=== PATIENT | male | born 1985 | race American Indian/Alaskan Native ===

== ENCOUNTER 2020-05-18 23:10 | Emergency (ER) | payer SELFPAY ==
[2020-05-19 02:09] LABS: Basophils % (Auto) 0.6 % (0.0-1.8); Eosinophils # (Auto) 0.1 K/mm3 (0.0-0.4); Eosinophils % (Auto) 1.4 % (0.0-4.3); Hematocrit 42.9 % (35.5-45.6); Hemoglobin 14.3 gm/dl (11.8-15.2); Lymphocytes # (Auto) 1.7 K/mm3 (1.2-5.4); Lymphocytes % (Auto) 27.8 % (13.4-35.0); Mean Corpuscular HGB Conc 33 % (32-34); Mean Corpuscular Volume 83 fl (84-94); Monocytes # (Auto) 0.6 K/mm3 (0.0-0.8); Monocytes % (Auto) 9.7 % (0.0-7.3); Platelet Count 331 K/mm3 (140-440); Red Blood Count 5.16 M/mm3 (3.65-5.03); Red Cell Distribution Width 15.8 % (13.2-15.2)
[2020-05-19 02:22] LABS: Blood Urea Nitrogen 8 mg/dL (9-20); Calcium 9.3 mg/dL (8.4-10.2); Hemolysis Index 24
[2020-05-19 02:29] LABS: BUN/Creatinine Ratio 13
--- NOTE | 2020-05-19 09:51 | Emergency Department Report ---
<JESSI ROSADO - Last Filed: 05/19/20 14:49> ED Psych HPI - General Chief Complaint: Psych Stated Complaint: MENTAL HEALTH CRISIS Time Seen by Provider: 05/19/20 09:02 Source: patient Mode of arrival: Ambulatory - History of Present Illness Initial Comments: 35-year-old male presents to ED for mental health evaluation. Patient reports history of depression, alcoholism, drug abuse. Patient states his last drink was last night. States he last used cocaine approximately 3 weeks ago. Patient states he is now feeling suicidal, with plan to overdose on Tylenol. Patient states he has just been depressed about a lot of things which has led him to have thoughts of suicide. Patient denies any HI or hallucinations. MD Complaint: suicidal ideation, feels depressed -: unknown Associated Psychiatric Symptoms: depression, suicidal ideation Quality: constant Improves With: none Worsens With: none Context: recent alcohol abuse, significant life stressor Associated Symptoms: denies other symptoms Treatments Prior to Arrival: none If Self Harm: has plan (Overdose on pills) - Related Data Allergies Allergy/AdvReac Type Severity Reaction Status Date / Time No Known Allergies Allergy Unverified 05/19/20 00:46 ED Review of Systems Comment: All other systems reviewed and negative Psychiatric: depression, suicidal thoughts ED Past Medical Hx - Past Medical History Previous Medical History?: Yes Hx Asthma: Yes - Surgical History Past Surgical History?: No - Social History Smoking Status: Current Every Day Smoker Substance Use Type: Marijuana ED Physical Exam - General Limitations: No Limitations General appearance: alert, in no apparent distress - Head Head exam: Present: atraumatic, normocephalic - Eye Eye exam: Present: normal appearance, EOMI - ENT ENT exam: Present: mucous membranes moist - Neck Neck exam: Present: normal inspection - Respiratory Respiratory exam: Present: normal lung sounds bilaterally. Absent: respiratory distress - Cardiovascular Cardiovascular Exam: Present: regular rate, normal rhythm - GI/Abdominal GI/Abdominal exam: Absent: distended - Extremities Exam Extremities exam: Present: normal inspection - Neurological Exam Neurological exam: Present: alert, oriented X3 - Psychiatric Psychiatric exam: Present: normal affect, normal mood - Skin Skin exam: Present: warm, dry, intact, normal color ED Medical Decision Making - Lab Data Result diagrams: 05/19/20 01:07 05/19/20 01:07 - Medical Decision Making 35-year-old male presents to the ED seeking mental health evaluation for alcohol and drug abuse and suicidal ideations. Labs are unremarkable except for EtOH level of 190. Patient is A& O x3. He is medically clear for mental health evaluation. Will dispo per psych. - Differential Diagnosis SI, drug abuse, EtOH abuse ED Disposition Clinical Impression: Alcohol intoxication, Passive suicidal ideations Disposition: DC-01 TO HOME OR SELFCARE Condition: Stable Additional Instructions: In case of an emergency, please contact the following numbers: [place] Crisis and Access Line: Number: Crisis Text Line: (Text START) Number: [id number] Suicide Prevention Line: Number: Emergency Number: 911 SUBSTANCE ABUSE PROGRAMS: [facility]: Location: [place], [place] [employer] Address: [address] [place] [address] [facility]: Address: [address] [place] [address] [facility]: Address: [address] [place] [address] [facility]: Address: [address] [place] [address] [facility] Address: [address] [place] [address]. Please contact above numbers to attempt placement into free based program. Medicaid Programs: [facility]: Address: [address] [place] [address] [facility]: Address: [address] [place] [address] [facility] Behavior[facility] Health Resources : [place]: [facility] [address] [place], [place] [address] [place]: [facility] - [address] [place] [address] Sunday thru Sunday - 8am - 5pm [place]: [facility] Address: [address] [place] [address] Sunday thru Sunday- 7am-2pm [facility] Address: [address], [place] [address] Sunday thru Sunday: 8:30AM-5PM Prescriptions: Nicotine [Habitrol] 21 mg TD DAILY #30 patch Referrals: PRIMARY CARE, [Primary Care Provider] - 3-5 Days <CRISELDA THORPE - Last Filed: 05/20/20 12:45> ED Review of Systems ROS: Stated complaint: MENTAL HEALTH CRISIS Other details as noted in HPI ED Course Vital Signs 05/19/20 05/19/20 05/19/20 00:25 07:24 08:37 Temperature 97.8 F 98.3 F 98.2 F Pulse Rate 107 H 92 H 78 Respiratory 18 16 18 Rate Blood Pressure 125/84 Blood Pressure 132/82 120/78 [Right] O2 Sat by Pulse 97 97 96 Oximetry 05/19/20 05/19/20 05/19/20 12:08 13:29 20:35 Temperature 98.2 F Pulse Rate 88 78 Respiratory 16 16 18 Rate Blood Pressure Blood Pressure 124/68 120/78 [Right] O2 Sat by Pulse 100 99 96 Oximetry 05/20/20 05/20/20 05:09 08:01 Temperature 98.5 F 98.4 F Pulse Rate 70 81 Respiratory 18 18 Rate Blood Pressure Blood Pressure 118/60 114/69 [Right] O2 Sat by Pulse 100 96 Oximetry - Reevaluation(s) Reevaluation #1: 05/20/20 12:44 Patient was seen by our mental health assessment team. Their note is as follows: Psychiatric Consult Note Patient Name: DELLA SALEH Date of : 89 Patient Status: Emergency Emergency Provider: JESSI ROSADO Date: 05/20/20 10:43 Initialization Date: 05/20/20 10:43 History of Present Illness - Reason for Consult Consult date: 05/20/20 Reason for consult: suicidal - History of Present Psychiatric Illness The patient's medical record was reviewed and the patient's progress was discussed with the nursing staff. The nurse caring for the patient today states that he has been calm and cooperative and has denies thoughts of self harm or hallucinations. eDlla Saleh is a 35y/o male patient who states he came to the ER because "I was on my way to my program and I relapsed." He then says, "I needed to be here a couple of days to get back in." He then says, "I think my two days are just about up." The patient is calm, cooperative, and polite. He makes good eye contact. He describes his mood as "good." The patient says "I only had a couple of beers but I felt guilty." He then laughs. The patient says prior to that he used to drink "a 5th of hennesy a day." The patient denies any illicit drug use. He says he smokes a "pack of cigarettes a day," in which he is asking for a patch. The patient denies any withdrawal symptoms at present. He denies SI/HI, and reports never having a suicide attempt. He also denies any past psychiatric hospitalizations or being on any psychiatric medications. He also denies hallucinations of any kind. The patient is asking about returning to his detox facility. He asks "can somebody check and see if I can go back." PAST PSYCHIATRIC HISTORY: Suicide attempts or Self-harm behavior: Denies Prior psychiatric hospitalizations: Denies Substance Abuse history: Alcohol Previous psychiatric medications tried: Denies Outpatient treatment: Detox facility PAST MEDICAL HISTORY: Family Psychiatric History: None reported or documented SOCIAL HISTORY Marital Status: Single Living Arrangements: Detox facility Employment Status: Unemployed Access to guns/weapons: Denies Education: High school grad History of Abuse: Denies Legal History: Denies REVIEW OF SYSTEMS Constitutional: Negative for weight loss ENT: Negative for stridor Respiratory: Negative for cough or hemoptysis All other systems reviewed and are negative MENTAL STATUS EXAMINATION General Appearance: Dressed appropriately Behavior: calm, cooperative, polite Mood: "good" Affect and affective range: Congruent with stated mood Thought Process: goal directed Speech: Normal tone and pace Suicidal Ideation: Denies Homicidal Ideation: Denies Hallucinations: Denies Delusions: None elicited Insight and Judgment: Normal Memory/Cognition: Normal Impulse control: Limited Attention: Normal Orientation: Alert, oriented x 3 Assessment Alcohol Use Disorder PLAN d/c 1013 Nicotine patch 21mg daily Sitter: Defer to primary Medical: Per primary Disposition: Do not recommend acute inpatient treatment. The patient may discharge once medically clear. He understands that if suicidal ideation or any fear of endangerment are to arise he should seek immediate assistance, including the crisis hotline, 911, and or ER. The lifeline representatives is to further implement the safety plan with the patient The lifeline representatives is to provide the patient with outpatient resources for psychiatric services, cognitive behavioral therapy and additional detox programs The patient is to follow up in 7 to 14 days with primary and psych upon discharge. Will sign off. Thank you for this consult ED Medical Decision Making - Lab Data Result diagrams: 05/19/20 01:07 05/19/20 01:07 Critical care attestation.: If time is entered above; I have spent that time in minutes in the direct care of this critically ill patient, excluding procedure time. ED Disposition Is pt being admited?: No Does the pt Need Aspirin: No Time of Disposition: 12:45
[2020-05-19 11:40] LABS: Bilirubin,Urine NEG (Negative); Blood,Urine SM (Negative); Color,Urine Yellow (Yellow); Mucus,Urine FEW /HPF; Protein,Urine <15 mg/dL mg/dL (Negative)
[2020-05-19 11:47] LABS: Amphetamine Screen,Urine Negative; Benzodiazepines Screen,Urine Negative; Cannabinoid Screen,Urine Negative; Cocaine Screen,Urine Negative; Methadone Screen,Urine Negative; Opiate Screen,Urine Negative
[2020-05-20 08:02] VITALS: BP 114/69
--- NOTE | 2020-05-20 10:45 | Consultation ---
History of Present Illness - Reason for Consult Consult date: 05/20/20 Reason for consult: suicidal - History of Present Psychiatric Illness The patient's medical record was reviewed and the patient's progress was discussed with the nursing staff. The nurse caring for the patient today states that he has been calm and cooperative and has denies thoughts of self harm or hallucinations. Della Mclean is a 35y/o male patient who states he came to the ER because "I was on my way to my program and I relapsed." He then says, "I needed to be here a couple of days to get back in." He then says, "I think my two days are just about up." The patient is calm, cooperative, and polite. He makes good eye contact. He describes his mood as "good." The patient says "I only had a couple of beers but I felt guilty." He then laughs. The patient says prior to that he used to drink "a 5th of hennesy a day." The patient denies any illicit drug use. He says he smokes a "pack of cigarettes a day," in which he is asking for a patch. The patient denies any withdrawal symptoms at present. He denies SI/HI, and reports never having a suicide attempt. He also denies any past psychiatric hospitalizations or being on any psychiatric medications. He also denies hallucinations of any kind. The patient is asking about returning to his detox facility. He asks "can somebody check and see if I can go back." PAST PSYCHIATRIC HISTORY: Suicide attempts or Self-harm behavior: Denies Prior psychiatric hospitalizations: Denies Substance Abuse history: Alcohol Previous psychiatric medications tried: Denies Outpatient treatment: Detox facility PAST MEDICAL HISTORY: Family Psychiatric History: None reported or documented SOCIAL HISTORY Marital Status: Single Living Arrangements: Detox facility Employment Status: Unemployed Access to guns/weapons: Denies Education: High school grad History of Abuse: Denies Legal History: Denies REVIEW OF SYSTEMS Constitutional: Negative for weight loss ENT: Negative for stridor Respiratory: Negative for cough or hemoptysis All other systems reviewed and are negative MENTAL STATUS EXAMINATION General Appearance: Dressed appropriately Behavior: calm, cooperative, polite Mood: "good" Affect and affective range: Congruent with stated mood Thought Process: goal directed Speech: Normal tone and pace Suicidal Ideation: Denies Homicidal Ideation: Denies Hallucinations: Denies Delusions: None elicited Insight and Judgment: Normal Memory/Cognition: Normal Impulse control: Limited Attention: Normal Orientation: Alert, oriented x 3 Assessment Alcohol Use Disorder PLAN d/c 1013 Nicotine patch 21mg daily Sitter: Defer to primary Medical: Per primary Disposition: Do not recommend acute inpatient treatment. The patient may discharge once medically clear. He understands that if suicidal ideation or any fear of endangerment are to arise he should seek immediate assistance, including the crisis hotline, 911, and or ER. The quality control lab tech is to further implement the safety plan with the patient The quality control lab tech is to provide the patient with outpatient resources for psychiatric services, cognitive behavioral therapy and additional detox programs The patient is to follow up in 7 to 14 days with primary and psych upon discharge. Will sign off. Thank you for this consult Medications and Allergies Allergies Allergy/AdvReac Type Severity Reaction Status Date / Time No Known Allergies Allergy Unverified 05/19/20 00:46 Mental Status Exam - Vital signs Last Vital Signs Temp 98.4 F 05/20/20 08:01 Pulse 81 05/20/20 08:01 Resp 18 05/20/20 08:01 BP 114/69 05/20/20 08:01 Pulse Ox 96 05/20/20 08:01 Results Result Diagrams: 05/19/20 01:07 05/19/20 01:07 All other labs normal.
== END 2020-05-20 13:27 | disposition home or self-care (01) ==
LOC: ED 23:10
DX: F10.129 Alcohol abuse with intoxication, unspecified (principal); R45.851 Suicidal ideations; J45.909 Unspecified asthma, uncomplicated; F17.200 Nicotine dependence, unspecified, uncomplicated; F12.10 Cannabis abuse, uncomplicated

== ENCOUNTER 2020-12-23 04:47 | Emergency (ER) | payer MEDICAID ==
[2020-12-23 05:46] LABS: Basophils % (Auto) 0.5 % (0.0-1.8); Eosinophils # (Auto) 0.1 K/mm3 (0.0-0.4); Eosinophils % (Auto) 1.2 % (0.0-4.3); Hematocrit 44.5 % (35.5-45.6); Hemoglobin 15.1 gm/dl (11.8-15.2); Lymphocytes # (Auto) 2.4 K/mm3 (1.2-5.4); Lymphocytes % (Auto) 36.2 % (13.4-35.0); Mean Corpuscular HGB Conc 34 % (32-34); Mean Corpuscular Volume 83 fl (84-94); Monocytes # (Auto) 0.7 K/mm3 (0.0-0.8); Monocytes % (Auto) 10.5 % (0.0-7.3); Platelet Count 325 K/mm3 (140-440); Red Blood Count 5.36 M/mm3 (3.65-5.03); Red Cell Distribution Width 14.7 % (13.2-15.2)
[2020-12-23 06:05] LABS: BUN/Creatinine Ratio 14; Blood Urea Nitrogen 11 mg/dL (9-20); Hemolysis Index 27
--- NOTE | 2020-12-23 08:12 | Event Note ---
ED Screening Note Date of service: 12/23/20 Time: 08:11 ED Screening Note: 35-year-old male patient with history of asthma, depression, and PTSD presents to the emergency department with complaints of suicidal ideations for 2 days. Patient states he was recently released [facility] and is currently homeless. He has struggled with suicidal thoughts in the past, as recently as 6 months ago. He has attempted suicide on previous occasions. Patient states, "I've thought about taking a bunch of pills." Last alcohol consumption was last night. Last marijuana use was approximately 1 month ago. No other illicit drug use. No homicidal ideations. No hallucinations. Tachycardic in triage. General: Awake, appropriately interactive, no acute distress. Neck: Supple. Full range of motion intact. Cardiovascular: Normal peripheral perfusion. Pulmonary: No respiratory distress. Patient is speaking normally without use of accessory muscles. Skin: No apparent rashes or lesions. Neurological: No facial asymmetry. Speech is clear. Follows commands. Patient is alert and oriented. Musculoskeletal: Moves all four extremities spontaneously with normal range of motion. Psych: Cooperative. Appropriate mood and affect. I have greeted and performed a focused rapid initial assessment of this patient. A comprehensive ED assessment and evaluation of the patient, analysis of all test results, and completion of the medical decision-making process will be conducted by additional ED providers. This initial assessment/diagnostic orders/clinical plan/treatment(s) is/are subject to change based on patients health status, clinical progression and re-assessment. Further treatment and workup at subsequent clinical provider's discretion. Patient/guardian urged not to elope from the ED as their condition may be serious if not clinically assessed and managed.
[2020-12-23 10:00] VITALS: BP 120/72
[2020-12-23 10:35] LABS: Bilirubin,Urine NEG (Negative); Blood,Urine MOD (Negative); Color,Urine Yellow (Yellow); Hyaline Casts,Urine 6 /LPF; Mucus,Urine 3+ /HPF
[2020-12-23 10:41] LABS: Amphetamine Screen,Urine Negative; Benzodiazepines Screen,Urine Negative; Cannabinoid Screen,Urine Negative; Cocaine Screen,Urine Negative; Methadone Screen,Urine Negative; Opiate Screen,Urine Negative
--- NOTE | 2020-12-23 11:00 | Emergency Department Report ---
ED Psych HPI - General Chief Complaint: Psych Stated Complaint: SUICIDAL THOUGHTS/MH EVAL Source: patient, EMS Mode of arrival: Ambulatory - History of Present Illness Initial Comments: This is a 35-year-old male that was released from shelter 2 days ago. He states that the shelter kept him on his Remeron which was prescribed at [place] approximately 2 months ago when he was admitted for suicidal ideation and an overdose of pills. He states that he did not require medical hospitalization for that overdose. He states he was sent from another [facility] but does not recall the name. Patient states that he is trying to get into a detox program. He also states that he has had suicidal thoughts. He does not have a specific plan. He did not take an overdose. He states he is taking his Remeron. He admits alcohol abuse. Patient has already been seen by the psychiatric PA. Complaint: suicidal ideation -: Gradual Associated Psychiatric Symptoms: suicidal ideation History of same: Yes Quality: intermittent Improves With: none Worsens With: none Context: recent alcohol abuse Associated Symptoms: denies other symptoms - Related Data Previous Rx's Medication Instructions Recorded Last Taken Type Nicotine [Habitrol] 21 mg TD DAILY #30 patch 05/20/20 Unknown Rx Allergies Allergy/AdvReac Type Severity Reaction Status Date / Time No Known Allergies Allergy Unverified 05/19/20 00:46 ED Review of Systems ROS: Stated complaint: SUICIDAL THOUGHTS/MH EVAL Other details as noted in HPI Constitutional: denies: chills, fever Eyes: denies: eye pain, vision change ENT: denies: ear pain, throat pain Respiratory: denies: cough, shortness of breath, wheezing Cardiovascular: denies: chest pain, palpitations Endocrine: no symptoms reported Gastrointestinal: denies: abdominal pain, nausea, diarrhea Genitourinary: denies: urgency, dysuria Musculoskeletal: denies: back pain, arthralgia Skin: denies: rash, lesions Neurological: denies: headache, weakness, paresthesias Psychiatric: suicidal thoughts. denies: as per HPI, anxiety Hematological/Lymphatic: denies: easy bleeding, easy bruising ED Past Medical Hx - Past Medical History Previous Medical History?: Yes Hx Asthma: Yes - Surgical History Past Surgical History?: No - Social History Smoking Status: Current Every Day Smoker Substance Use Type: Alcohol, Marijuana - Medications Home Medications: Home Medications Medication Instructions Recorded Confirmed Last Taken Type Nicotine [Habitrol] 21 mg TD DAILY #30 patch 05/20/20 Unknown Rx ED Physical Exam - General Limitations: No Limitations General appearance: alert, in no apparent distress - Head Head exam: Present: atraumatic, normocephalic - Eye Eye exam: Present: normal appearance - ENT ENT exam: Present: mucous membranes moist - Neck Neck exam: Present: normal inspection. Absent: tenderness, meningismus - Respiratory Respiratory exam: Present: normal lung sounds bilaterally. Absent: respiratory distress - Cardiovascular Cardiovascular Exam: Present: regular rate, normal rhythm. Absent: systolic murmur, diastolic murmur, rubs, gallop - GI/Abdominal GI/Abdominal exam: Present: soft, normal bowel sounds. Absent: distended, tenderness, guarding, rebound - Rectal Rectal exam: Present: deferred - Extremities Exam Extremities exam: Present: normal inspection - Back Exam Back exam: Present: normal inspection - Neurological Exam Neurological exam: Present: alert, oriented X3, CN II-XII intact. Absent: motor sensory deficit - Psychiatric Psychiatric exam: Present: normal affect, normal mood - Skin Skin exam: Present: warm, dry, intact, normal color. Absent: rash ED Course Vital Signs 12/23/20 12/23/20 04:54 09:59 Temperature 98.5 F 98.0 F Pulse Rate 111 H 90 Respiratory 18 20 Rate Blood Pressure 132/77 Blood Pressure 120/72 [Right] O2 Sat by Pulse 95 98 Oximetry ED Medical Decision Making - Lab Data Result diagrams: 12/23/20 05:07 12/23/20 05:07 Laboratory Results - last 24 hr 12/23/20 12/23/20 12/23/20 05:07 05:07 05:07 WBC RBC Hgb Hct MCV MCH MCHC RDW Plt Count Lymph % (Auto) [place] % (Auto) Eos % (Auto) Baso % (Auto) Lymph # (Auto) [place] # (Auto) Eos # (Auto) Baso # (Auto) Seg Neutrophils % Seg Neutrophils # Sodium 145 Potassium 4.0 Chloride 104.1 Carbon Dioxide 26 Anion Gap 19 BUN 11 Creatinine 0.8 Estimated GFR > 60 BUN/Creatinine Ratio 14 Glucose 94 Calcium 9.0 Magnesium TSH Urine Color Urine Turbidity Urine pH Ur Specific [place] Urine Protein Urine Glucose (UA) Urine Ketones Urine Blood Urine Nitrite Urine Bilirubin Urine Urobilinogen Ur Leukocyte Esterase Urine WBC (Auto) Urine RBC (Auto) Hyaline Casts Urine Mucus Salicylates < 0.3 L Urine Opiates Screen Urine Methadone Screen Acetaminophen 5.0 L Ur Barbiturates Screen Ur Phencyclidine Scrn Ur Amphetamines Screen U Benzodiazepines Scrn Urine Cocaine Screen U Marijuana (THC) Screen Plasma/Serum Alcohol 12/23/20 12/23/20 12/23/20 05:07 05:07 09:26 WBC 6.7 RBC 5.36 H Hgb 15.1 Hct 44.5 MCV 83 L MCH 28 MCHC 34 RDW 14.7 Plt Count 325 Lymph % (Auto) 36.2 H [place] % (Auto) 10.5 H Eos % (Auto) 1.2 Baso % (Auto) 0.5 Lymph # (Auto) 2.4 [place] # (Auto) 0.7 Eos # (Auto) 0.1 Baso # (Auto) 0.0 Seg Neutrophils % 51.6 Seg Neutrophils # 3.5 Sodium Potassium Chloride Carbon Dioxide Anion Gap BUN Creatinine Estimated GFR BUN/Creatinine Ratio Glucose Calcium Magnesium 1.70 TSH Urine Color Urine Turbidity Urine pH Ur Specific [place] Urine Protein Urine Glucose (UA) Urine Ketones Urine Blood Urine Nitrite Urine Bilirubin Urine Urobilinogen Ur Leukocyte Esterase Urine WBC (Auto) Urine RBC (Auto) Hyaline Casts Urine Mucus Salicylates Urine Opiates Screen Urine Methadone Screen Acetaminophen Ur Barbiturates Screen Ur Phencyclidine Scrn Ur Amphetamines Screen U Benzodiazepines Scrn Urine Cocaine Screen U Marijuana (THC) Screen Plasma/Serum Alcohol 0.17 H 12/23/20 12/23/20 12/23/20 09:26 Unknown Unknown WBC RBC Hgb Hct MCV MCH MCHC RDW Plt Count Lymph % (Auto) [place] % (Auto) Eos % (Auto) Baso % (Auto) Lymph # (Auto) [place] # (Auto) Eos # (Auto) Baso # (Auto) Seg Neutrophils % Seg Neutrophils # Sodium Potassium Chloride Carbon Dioxide Anion Gap BUN Creatinine Estimated GFR BUN/Creatinine Ratio Glucose Calcium Magnesium TSH 1.870 Urine Color Yellow Urine Turbidity Slightly-cloudy Urine pH 5.0 Ur Specific [place] 1.029 Urine Protein 30 mg/dl Urine Glucose (UA) Neg Urine Ketones Neg Urine Blood Mod Urine Nitrite Neg Urine Bilirubin Neg Urine Urobilinogen 2.0 Ur Leukocyte Esterase Tr Urine WBC (Auto) 5.0 Urine RBC (Auto) 6.0 Hyaline Casts 6 Urine Mucus 3+ Salicylates Urine Opiates Screen Negative Urine Methadone Screen Negative Acetaminophen Ur Barbiturates Screen Negative Ur Phencyclidine Scrn Negative Ur Amphetamines Screen Negative U Benzodiazepines Scrn Negative Urine Cocaine Screen Negative U Marijuana (THC) Screen Negative Plasma/Serum Alcohol Critical care attestation.: If time is entered above; I have spent that time in minutes in the direct care of this critically ill patient, excluding procedure time. ED Disposition Clinical Impression: Alcohol abuse, Psychiatric disorder Disposition: DC-01 TO HOME OR SELFCARE Is pt being admited?: No Does the pt Need Aspirin: No Condition: Stable Instructions: Alcohol Use Disorder, Suicidal Feelings: How to Help Yourself, Helping Someone Who Is Suicidal Additional Instructions: In case of an emergency, please contact the following numbers: [place] Crisis and Access Line: Number: Crisis Text Line: (Text START) Number: 901452 Suicide Prevention Line: Number: Emergency Number: 911 SUBSTANCE ABUSE PROGRAMS: Sober Living [facility]: Location: [place] Address: [address] [place] [address] [facility]: Address: [address] [place] [address] [facility]: Address: [address] [place] [address] [facility] Community: Address: [address] [place] [address] [facility] Address: [address] [place] [address]. Referrals: [facility] [Outside] - 3-5 Days PRIMARY CARE, [Primary Care Provider] - 3-5 Days Time of Disposition: 19:40
--- NOTE | 2020-12-23 11:51 | Consultation ---
History of Present Illness - Reason for Consult Consult date: 12/23/20 Reason for consult: MHE Requesting physician: BELTRAN SALCEDO - History of Present Psychiatric Illness PER ED Note: 35-year-old male patient with history of asthma, depression, and PTSD presents to the emergency department with complaints of suicidal ideations for 2 days. Patient states he was recently released from prison and is currently homeless. He has struggled with suicidal thoughts in the past, as recently as 6 months ago. He has attempted suicide on previous occasions. Patient states, "I've thought about taking a bunch of pills." Last alcohol consumption was last night. Last marijuana use was approximately 1 month ago. No other illicit drug use. No homicidal ideations. No hallucinations. PSYCH HPI Patient is a 35-year-old, single, unemployed and homeless -[place] male with past psychiatric history of PTSD, depression and alcohol use disorder and past medical history of asthma who presented to the ED with chief complaint of suicidal ideation. Patient reported was just recently released from prison 2 days ago for criminal related offenses, and has no where to go and states he has been feeling suicidal due to his homelessness, and also reports feeling sad because he has not been able to see his kid because he does not get along with their moms. Review of previous medical records shows patient was actually living in a alcohol-related sober facility which he had evaluated their rules, and I then Asked patient what happened to the alcohol program he was in, patient reports relapsing, for no particular reason. Patient reported actually getting a job and facility where he was also allowed to stay, after working first day on the job he drank heavily and never returned to the Job. PAST PSYCHIATRIC HISTORY: Suicide attempts or Self-harm behavior: Denies Prior psychiatric hospitalizations: Denies Substance Abuse history: Alcohol Previous psychiatric medications tried: Denies Outpatient treatment: Detox facility PAST MEDICAL HISTORY: Family Psychiatric History: None reported or documented SOCIAL HISTORY Marital Status: Single Living Arrangements: Detox facility Employment Status: Unemployed Access to guns/weapons: Denies Education: High school grad History of Abuse: Denies Legal History: Denies REVIEW OF SYSTEMS Constitutional: Negative for weight loss ENT: Negative for stridor Respiratory: Negative for cough or hemoptysis All other systems reviewed and are negative MENTAL STATUS EXAMINATION General Appearance: Dressed appropriately Behavior: calm, cooperative, polite Mood: "depressed Affect and affective range: Congruent with stated mood Thought Process: goal directed Speech: Normal tone and pace Suicidal Ideation: suicidal ( conditional to homelessness Homicidal Ideation: Denies Hallucinations: Denies Delusions: None elicited Insight and Judgment: Normal Memory/Cognition: Normal Impulse control: Limited Attention: Normal Orientation: Alert, oriented x 3. Assessment Alcohol Use Disorder Diagnoses: The patient is not psychotic and clearly seeking secondary gain for halfway and food. He has a history of this and also has a history of acting out when he does not get his way. His SI is conditional to homeless. Also chronic alcohol use and has been in a sober living facility in which he violated their rules. Treatment Plan MEDICATIONS: Risks, benefits and alternatives of medications discussed with the patient, questions answered and consent obtained from patient. PSYCHOTHERAPY: Supportive psychotherapy provided MEDICAL: Per primary team DELIRIUM PRECAUTIONS: Please re-orient patient frequently, keep lights on during the day, and minimize benzodiazepines and opiates as these medications could worsen patient's confusion. 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 Case discussed with Dr. Medeiros who agrees with current disposition LEGAL STATUS: 1013 rescinded FOLLOW-UP: Will sign off. Thank you for the consult. Please contact with any questions and/or concerns. Medications and Allergies Allergies Allergy/AdvReac Type Severity Reaction Status Date / Time No Known Allergies Allergy Unverified 05/19/20 00:46 Home Medications Medication Instructions Recorded Confirmed Last Taken Type Nicotine [Habitrol] 21 mg TD DAILY #30 patch 05/20/20 Unknown Rx Mental Status Exam - Vital signs Last Vital Signs Temp 98.0 F 12/23/20 09:59 Pulse 90 12/23/20 09:59 Resp 20 12/23/20 09:59 BP 120/72 12/23/20 09:59 Pulse Ox 98 12/23/20 09:59 Results Result Diagrams: 12/23/20 05:07 12/23/20 05:07 Abnormal lab results 12/23/20 12/23/20 12/23/20 Range/Units 05:07 05:07 05:07 RBC (3.65-5.03) M/mm3 MCV (84-94) fl Lymph % (Auto) (13.4-35.0) % [place] % (Auto) (0.0-7.3) % Salicylates < 0.3 L (2.8-20.0) mg/dL Acetaminophen 5.0 L (10.0-30.0) ug/mL Plasma/Serum Alcohol 0.17 H (0-0.07) % 12/23/20 Range/Units 05:07 RBC 5.36 H (3.65-5.03) M/mm3 MCV 83 L (84-94) fl Lymph % (Auto) 36.2 H (13.4-35.0) % [place] % (Auto) 10.5 H (0.0-7.3) % Salicylates (2.8-20.0) mg/dL Acetaminophen (10.0-30.0) ug/mL Plasma/Serum Alcohol (0-0.07) % All other labs normal.
== END 2020-12-23 15:15 | disposition home or self-care (01) ==
LOC: ED 04:47
DX: R45.851 Suicidal ideations (principal); Z20.822 Contact with and (suspected) exposure to COVID-19; F10.10 Alcohol abuse, uncomplicated; J45.909 Unspecified asthma, uncomplicated; F17.200 Nicotine dependence, unspecified, uncomplicated; F12.10 Cannabis abuse, uncomplicated; Z79.899 Other long term (current) drug therapy
CPT/HCPCS: 36415; 80048; 80307; 81001; 83735; 84443; 85025; 99283; U0003; 80320; G0480

== ENCOUNTER 2021-01-17 01:41 | Emergency (ER) | payer MEDICAID ==
[2021-01-17] MEDS ORDERED: diphenhydrAMINE 25 MG CAP PO PRN (02:03)
[2021-01-17] MEDS ORDERED: LORazepam 2 MG/ML VIAL IM PRN (02:03)
--- NOTE | 2021-01-17 02:05 | Emergency Department Report ---
ED General Adult HPI - General Chief complaint: Psych Stated complaint: SUICIDAL THOUGHTS/MH EVAL PUI?: No Time Seen by Provider: 01/17/21 01:49 Source: patient, EMS (Verbal report received from emergency medical services. EMS documentation not available at time of chart dictation ), RN notes reviewed, old records reviewed Mode of arrival: Ambulatory Limitations: Other (Intoxication) - History of Present Illness Initial comments: The patient was evaluated in the emergency department for symptoms described in the history of present illness. He/she was evaluated in the context of the global COVID-19 pandemic, which necessitated consideration that the patient might be at risk for infection with the virus that causes COVID-19. Institutional protocols and algorithms that pertain to the evaluation of patients at risk for COVID-19 are in a state of rapid change based on information released by regulatory bodies including the CDC and federal and state organizations. These policies and algorithms were followed during the patient's care in the emergency department. Please note that these policies, procedures and recommendations changed on a rapid basis. The patient is a 35-year-old gentleman with a history of alcohol use, and prior visits to this department for complaints of alcohol intoxication and suicidality. Today, he is brought to the hospital by emergency medical services with a complaint of request for psychiatric evaluation, suicidality and alcohol intoxication. EMS states the patient called him while he was at a gas station. They report no trauma. They reports no collateral information from visitors, friends, or family members. The patient himself states he is suicidal. He cannot tell me if he has a plan to kill himself. He denies physical pain. The patient is intoxicated and a poor historian. The patient denies Covid symptoms. Patient not accompanied by friends or family at this time for collateral information. Patient himself does not describe qualitative nature of symptoms, exacerbating factors, relieving factors, or aggravating factors. Of note, this patient has presented to this department in the past for similar symptoms, and it appears that he has been discharged in the past when he chris up -: This morning - Related Data Previous Rx's Medication Instructions Recorded Last Taken Type Nicotine [Habitrol] 21 mg TD DAILY #30 patch 05/20/20 Unknown Rx Allergies Allergy/AdvReac Type Severity Reaction Status Date / Time No Known Allergies Allergy Unverified 05/19/20 00:46 ED Review of Systems ROS: Stated complaint: SUICIDAL THOUGHTS/MH EVAL Other details as noted in HPI Comment: Unobtainable due to pts medical conditions (Patient is intoxicated) Psychiatric: suicidal thoughts ED Past Medical Hx - Past Medical History Previous Medical History?: Yes Hx Asthma: Yes - Surgical History Past Surgical History?: No - Social History Smoking Status: Current Every Day Smoker Substance Use Type: Alcohol, Marijuana - Medications Home Medications: Home Medications Medication Instructions Recorded Confirmed Last Taken Type Nicotine [Habitrol] 21 mg TD DAILY #30 patch 05/20/20 Unknown Rx ED Physical Exam - General Limitations: Other (Intoxication) General appearance: appears intoxicated, anxious - Head Head exam: Present: atraumatic, normocephalic - Eye Eye exam: Present: normal appearance, EOMI. Absent: nystagmus - ENT ENT exam: Present: normal exam, normal orophraynx, mucous membranes moist, rhonda l external ear exam - Neck Neck exam: Present: normal inspection, full ROM. Absent: tenderness, meningismus - Respiratory Respiratory exam: Present: normal lung sounds bilaterally. Absent: respiratory distress, wheezes, rales, rhonchi, stridor, decreased breath sounds - Cardiovascular Cardiovascular Exam: Present: regular rate, normal rhythm, normal heart sounds. Absent: bradycardia, tachycardia, irregular rhythm, systolic murmur, diastolic murmur, rubs, gallop - GI/Abdominal GI/Abdominal exam: Present: soft. Absent: distended, tenderness, guarding, rebound, rigid, pulsatile mass - Rectal Rectal exam: Present: deferred - Extremities Exam Extremities exam: Present: normal inspection, full ROM, other (2+ pulses noted in the bilateral upper and lower extremities. There is no palpable cord. negative Homans sign. Muscular compartments are soft. The pelvis is stable.). Absent: pedal edema, calf tenderness - Back Exam Back exam: Present: normal inspection, full ROM. Absent: tenderness, CVA tenderness (R), CVA tenderness (L), paraspinal tenderness, vertebral tenderness - Neurological Exam Neurological exam: Present: other (No facial droop. Tongue midline. Extraocul ar movements intact bilaterally. Facial sensation intact to light touch in V1, V2, V3 distribution bilaterally. 5 and a 5 strength in 4 extremities. Sensation intact to light touch in 4 extremities.) - Psychiatric Psychiatric exam: Present: anxious, suicidal ideation - Skin Skin exam: Present: warm, dry, intact, normal color. Absent: rash ED Course Vital Signs 01/17/21 01/17/21 01/17/21 02:00 03:06 03:26 Temperature 97.7 F 98.6 F Pulse Rate 95 H 90 Respiratory 18 20 Rate Blood Pressure 133/74 120/61 [Left] O2 Sat by Pulse 98 100 Oximetry 01/17/21 11:22 Temperature 98.2 F Pulse Rate 90 Respiratory 18 Rate Blood Pressure 165/90 [Left] O2 Sat by Pulse 99 Oximetry - Reevaluation(s) Reevaluation #1: 01/17/21 03:11 Differential diagnosis, including but not limited to: Alcohol intoxication, mood disorder, suicidality, medical clearance for psychiatric placement Assessment and plan: 35-year-old gentleman, who is afebrile with reassuring vital signs, with no physical exam evidence of blunt or penetrating trauma, who was brought to the hospital by EMS with a complaint of alcohol intoxication and suicidal. This patient has presented to this department for similar complaints in the past. Place patient on hold status, order appropriate laboratory studies, as needed orders placed, psychiatric consultation requested. I suspect that the patient will be cleared by the psychiatry team once clinically sober. Reassess after laboratory studies have resulted. 01/17/21 04:25 Laboratory studies unremarkable with exception of elevated blood alcohol level as expected. Urinalysis is pending at this time, purely for the purposes of psychiatric placement. Do not have medical concern about urinary tract infection at this time. At this moment, patient does not appear to have an immediate medical contraindication to psychiatric admission, evaluation, consultation and placement. However, if the psychiatric team recommends discharge once sober, without involuntary confinement of 1013 hold, or acute inpatient psychiatric hospitalization, I think this would also be reasonable. ED Medical Decision Making - Lab Data Result diagrams: 01/17/21 02:59 01/17/21 02:59 Vital Signs 01/17/21 02:00 Temperature 97.7 F Pulse Rate 95 H Blood Pressure 133/74 [Left] Lab Results 01/17/21 Range/Units 02:59 WBC 6.2 (4.5-11.0) K/mm3 RBC 4.80 (3.65-5.03) M/mm3 Hgb 13.8 (11.8-15.2) gm/dl Hct 40.7 (35.5-45.6) % MCV 85 (84-94) fl MCH 29 (28-32) pg MCHC 34 (32-34) % RDW 15.7 H (13.2-15.2) % Plt Count 285 (140-440) K/mm3 Labs 01/17/21 01/17/21 01/17/21 02:59 02:59 02:59 WBC 6.2 RBC 4.80 Hgb 13.8 Hct 40.7 MCV 85 MCH 29 MCHC 34 RDW 15.7 H Plt Count 285 Sodium 139 Potassium 4.1 Chloride 100.0 Carbon Dioxide 25 Anion Gap 18 BUN 8 L Creatinine 0.7 L Estimated GFR > 60 BUN/Creatinine Ratio 11 Glucose 83 Calcium 9.2 Magnesium 2.10 Total Creatine Kinase 911 H Salicylates < 0.3 L Acetaminophen Plasma/Serum Alcohol 01/17/21 01/17/21 02:59 02:59 WBC RBC Hgb Hct MCV MCH MCHC RDW Plt Count Sodium Potassium Chloride Carbon Dioxide Anion Gap BUN Creatinine Estimated GFR BUN/Creatinine Ratio Glucose Calcium Magnesium Total Creatine Kinase Salicylates Acetaminophen 5.0 L Plasma/Serum Alcohol 0.29 H Vital Signs 01/17/21 01/17/21 01/17/21 02:00 03:06 03:26 Temperature 97.7 F 98.6 F Pulse Rate 95 H 90 Respiratory 18 20 Rate Blood Pressure 133/74 120/61 [Left] O2 Sat by Pulse 98 100 Oximetry Critical care attestation.: If time is entered above; I have spent that time in minutes in the direct care of this critically ill patient, excluding procedure time. ED Disposition Clinical Impression: Alcohol intoxication, Encounter for behavioral health screening, General medical exam Disposition: DC-01 TO HOME OR SELFCARE Is pt being admited?: No Does the pt Need Aspirin: No Condition: Good Additional Instructions: Professional and Agency Contacts To help Resolve Crises(12/03) [place] Crisis Line: Suicide Prevention Line: Crisis Text Line: Text START to 670872 Emergency: 911 Outpatient COMMUNITY Behavioral Health Resources: DEKALB: [facility] [address] [place], [place] [address] [place] [address] [place]: [facility] - [address] [place] [address] Sunday thru Sunday - 8am - 5pm VANESA: [facility] Address: [address], [place] [address] [place]: [facility] Address: [address] [place] [address] Sunday thru Sunday- 7am-2pm [facility] Address: [address] [place] [address] Sunday thru Sunday: 8:30AM-5PM Phone: [phone] In case of an emergency, please contact the following numbers: [place] Crisis and Access Line: Number: Crisis Text Line: (Text START) Number: 894608 Suicide Prevention Line: Number: Emergency Number: 911 SUBSTANCE ABUSE PROGRAMS: Sober Living [place]: Location: [place], [place] [employer]! Address: [address] [place] [address] [facility]: Address: [address] [place] [address] [facility]: Address: [address] [place] [address] [facility] Community: Address: [address] [place] [address] [facility] Address: [address] [place] [address]. Please contact above numbers to attempt placement into free based program. Medicaid Programs: [facility]: Address: [address] [place] [address] [facility]: Address: [address] [place] [address] Phone: [phone] Referrals: PRIMARY CARE, [Primary Care Provider] - 3-5 Days
[2021-01-17] MEDS ORDERED: DEXTROSE 50% IN WATER (25GM) 50 ML VIAL IV PRN (03:08)
[2021-01-17] MEDS ORDERED: LORazepam 2 MG/ML VIAL IV PRN (03:09)
[2021-01-17] MEDS ORDERED: LORazepam 2 MG TAB PO PRN ×2 (03:09)
[2021-01-17] MEDS ORDERED: chlordiazePOXIDE 25 MG CAP PO PRN ×2 (03:09)
[2021-01-17 03:10] LABS: Hematocrit 40.7 % (35.5-45.6); Hemoglobin 13.8 gm/dl (11.8-15.2); Mean Corpuscular HGB Conc 34 % (32-34); Mean Corpuscular Volume 85 fl (84-94); Platelet Count 285 K/mm3 (140-440); Red Cell Distribution Width 15.7 % (13.2-15.2)
[2021-01-17 03:30] LABS: Blood Urea Nitrogen 8 mg/dL (9-20); Calcium 9.2 mg/dL (8.4-10.2); Hemolysis Index 12
[2021-01-17 03:34] LABS: BUN/Creatinine Ratio 11
--- NOTE | 2021-01-17 08:38 | Consultation ---
History of Present Illness - Reason for Consult Consult date: 01/17/21 Reason for consult: MHE Requesting physician: MAGUE LINARES - History of Present Psychiatric Illness PER ED Note: The patient is a 35-year-old gentleman with a history of alcohol use, and prior visits to this department for complaints of alcohol intoxication and suicidality. Today, he is brought to the hospital by emergency medical services with a complaint of request for psychiatric evaluation, suicidality and alcohol intoxication. EMS states the patient called him while he was at a gas station. They report no trauma. They reports no collateral information from visitors, friends, or family members. PSYCH HPI Patient is a 35-year-old, single, unemployed and homeless -[place]anese male with past psychiatric history of PTSD, depression and alcohol use disorder and past medical history of asthma who presented to the ED with chief complaint of suicidal ideation. Patient seen in isolation room, provider introduced self, though patient alert, but requested not to be disturbed and turned the other way to go back to bed. PAST PSYCHIATRIC HISTORY: Suicide attempts or Self-harm behavior: Denies Prior psychiatric hospitalizations: Denies Substance Abuse history: Alcohol Previous psychiatric medications tried: Denies Outpatient treatment: Detox facility PAST MEDICAL HISTORY: Family Psychiatric History: None reported or documented SOCIAL HISTORY Marital Status: Single Living Arrangements: Detox facility Employment Status: Unemployed Access to guns/weapons: Denies Education: High school grad History of Abuse: Denies Legal History: Denies REVIEW OF SYSTEMS Constitutional: Negative for weight loss ENT: Negative for stridor Respiratory: Negative for cough or hemoptysis All other systems reviewed and are negative MENTAL STATUS EXAMINATION General Appearance: Dressed appropriately Behavior: calm, cooperative, polite Mood: "depressed Affect and affective range: Congruent with stated mood Thought Process: goal directed Speech: Normal tone and pace Suicidal Ideation: suicidal ( conditional to homelessness Homicidal Ideation: Denies Hallucinations: Denies Delusions: None elicited Insight and Judgment: Normal Memory/Cognition: Normal Impulse control: Limited Attention: Normal Orientation: Alert, oriented x 3. Assessment Alcohol Use Disorder Diagnoses: I attempted to interview patient today, patient refused to have a conversation and chose to sleep only telling me "im suicidal" and then went back to bed. Patients pattern of behavior is consistent with prior evaluation of mallingering. The patient is not psychotic and clearly seeking secondary gain for chcf and food. He has a history of this and also has a history of acting out when he does not get his way. His SI is conditional to homeless. Also chronic alcohol use and has been in a sober living facility in which he violated their rules. Treatment Plan MEDICATIONS: Risks, benefits and alternatives of medications discussed with the patient, questions answered and consent obtained from patient. PSYCHOTHERAPY: Supportive psychotherapy provided MEDICAL: Per primary team DELIRIUM PRECAUTIONS: Please re-orient patient frequently, keep lights on during the day, and minimize benzodiazepines and opiates as these medications could worsen patient's confusion. 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 Case discussed with Dr. Medeiros who agrees with current disposition LEGAL STATUS: 1013 rescinded FOLLOW-UP: Will sign off. Thank you for the consult. Please contact with any questions and/or concerns. Medications and Allergies Allergies Allergy/AdvReac Type Severity Reaction Status Date / Time No Known Allergies Allergy Unverified 05/19/20 00:46 Home Medications Medication Instructions Recorded Confirmed Last Taken Type Nicotine [Habitrol] 21 mg TD DAILY #30 patch 05/20/20 Unknown Rx Active Meds: Active Medications Chlordiazepoxide HCl (Chlordiazepoxide 25 Mg Cap) 50 mg PO Q1HR PRN PRN Reason: CIWA-Ar 8-15 Chlordiazepoxide HCl (Chlordiazepoxide 25 Mg Cap) 100 mg PO Q1HR PRN PRN Reason: CIWA-Ar 16-25 Dextrose (Dextrose 50% In Water (25gm) 50 Ml Vial) 50 gm IV Q30MIN PRN; Protocol PRN Reason: Hypoglycemia Diphenhydramine HCl (Diphenhydramine 25 Mg Cap) 50 mg PO QHS PRN PRN Reason: Insomnia Lorazepam (Lorazepam 2 Mg/Ml Vial) 2 mg IM Q4HR PRN PRN Reason: Agitation Lorazepam (Lorazepam 2 Mg Tab) 2 mg PO Q1HR PRN PRN Reason: CIWA-Ar 8-15 Lorazepam (Lorazepam 2 Mg Tab) 4 mg PO Q1HR PRN PRN Reason: CIWA-Ar 16-25 Lorazepam (Lorazepam 2 Mg/Ml Vial) 4 mg IV Q15MIN PRN PRN Reason: CIWA-Ar >25 Multivitamins (Multivitamins ,Therapeutic Tab) 1 each PO QDAY MICHAEL Mental Status Exam - Vital signs Last Vital Signs Temp 98.6 F 01/17/21 03:26 Pulse 90 05/31/21 03:26 Resp 20 01/17/21 03:26 BP 120/61 01/17/21 03:26 Pulse Ox 100 01/17/21 03:26 Results Result Diagrams: 01/17/21 02:59 01/17/21 02:59 Abnormal lab results 01/17/21 01/17/21 01/17/21 Range/Units 02:59 02:59 02:59 RDW 15.7 H (13.2-15.2) % BUN 8 L (9-20) mg/dL Creatinine 0.7 L (0.8-1.3) mg/dL Total Creatine Kinase 911 H (55-170) units/L Salicylates < 0.3 L (2.8-20.0) mg/dL Acetaminophen (10.0-30.0) ug/mL Plasma/Serum Alcohol (0-0.07) % 01/17/21 01/17/21 Range/Units 02:59 02:59 RDW (13.2-15.2) % BUN (9-20) mg/dL Creatinine (0.8-1.3) mg/dL Total Creatine Kinase (55-170) units/L Salicylates (2.8-20.0) mg/dL Acetaminophen 5.0 L (10.0-30.0) ug/mL Plasma/Serum Alcohol 0.29 H (0-0.07) % All other labs normal.
[2021-01-17] MEDS ORDERED: MULTIVITAMINS ,THERAPEUTIC TAB PO SCH (10:00)
--- NOTE | 2021-01-17 10:55 | Event Note ---
Date: 01/17/21 EMR reviewed vital signs reviewed. They are stable. No issues brought to my attention. Consult reviewed. 1013 was rescinded. Case management was recommended. I see the patient is under CIWA protocol. CK under thousand should resolve with oral hydration.
[2021-01-17 11:23] VITALS: BP 165/90
== END 2021-01-17 12:46 | disposition home or self-care (01) ==
LOC: ED 01:41
DX: F10.129 Alcohol abuse with intoxication, unspecified (principal); Z13.30 Encounter for screening examination for mental health and behavioral disorders, unspecified; J45.909 Unspecified asthma, uncomplicated; F12.90 Cannabis use, unspecified, uncomplicated; F17.200 Nicotine dependence, unspecified, uncomplicated; Z79.899 Other long term (current) drug therapy; Y90.9 Presence of alcohol in blood, level not specified
CPT/HCPCS: 36415; 80048; 80320; 82550; 83735; 85027; 99284; G0480